=== PATIENT | male | born 1970 | race African-American/Black ===

== ENCOUNTER 2022-04-14 14:29 | Emergency (ER) | payer MEDICARE, MEDICAID ==
[~2022-04-14] VITALS: Ht 180.3 cm; Wt 78.0 kg
[2022-04-14 14:43] VITALS: BP 124/79
[2022-04-14] MEDS ORDERED: LIDOCAINE HCL 1% 20ML VIAL (Pyxis) INJ INFIL ONE (17:00)
[2022-04-14] MEDS ORDERED: TETANUS, DIPHTHERIA, PERTUSSIS VAC/PF 0.5ML (>10YR OLD) IM ONE (17:00)
== END 2022-04-14 19:18 | disposition home or self-care (01) ==
LOC: ER 14:29
DX: S61.215A Laceration without foreign body of left ring finger without damage to nail, initial encounter (principal); W29.8XXA Contact with other powered hand tools and household machinery, initial encounter; Z77.120 Contact with and (suspected) exposure to mold (toxic); Y93.H9 Activity, other involving exterior property and land maintenance, building and construction; Y92.89 Other specified places as the place of occurrence of the external cause; Y99.0 Civilian activity done for income or pay
CPT/HCPCS: 12001; 71045; 90471; 90715; 99283